=== PATIENT | male | born 1935 | race Caucasian/White ===

== ENCOUNTER 2018-09-26 16:52 | Emergency (ER) | payer OTHER ==
[~2018-09-26] VITALS: Ht 157.5 cm; Wt 95.3 kg
--- NOTE | 2018-09-26 16:57 | NUR ---
PT BIBRA FROM HALFWAY TO ER BED 07. PER REPORT "SYNCOPAL EPISODE." PT IS AWAKE, FARSI SPEAKING BUT ABLE TO ANSWER BASIC QUESTION. PT APPEARS CONFUSED. INCONTINENT TO URINE DIRECTOR OF LAND ACQUISITION. GOWNED AND PLACED ON MONITOR. STABLE AWAITING MD CRAIG.
[2018-09-26] MEDS ORDERED: IV NS 0.9% 500 ML BAG IV ONE (17:00)
--- NOTE | 2018-09-26 17:04 | NUR ---
DR TALLEY AT BEDSIDE FOR EVAL.
[2018-09-26 17:25] LABS: BASOPHILS # (AUTO) 0.1 /CMM (0.0-0.2); BASOPHILS % (AUTO) 0.6 % (0.0-2.0); HEMATOCRIT 36 % (39-51); HEMOGLOBIN 11.8 g/dL (13.5-17.5); LYMPHOCYTES # (AUTO) 1.4 /CMM (0.8-4.8); LYMPHOCYTES % (AUTO) 18.3 % (20.0-44.0); MEAN CORPUSCULAR HGB CONC 33 g/dl (31.0-36.0); MEAN CORPUSCULAR VOLUME 83 fL (80-96); MONOCYTES # (AUTO) 0.4 /CMM (0.1-1.30); MONOCYTES % (AUTO) 4.7 % (2.0-12.0); NEUTROPHILS % (AUTO) 76.4 % (43.0-81.0); PLATELET COUNT (AUTO) 192 /CMM (150-450); RED BLOOD CELL COUNT(AUTO) 4.28 MIL/uL (4.5-6.0); WHITE BLOOD COUNT (AUTO) 7.9 K/uL (4.3-11.0)
[2018-09-26 17:44] LABS: CALCIUM, SERUM 8.6 mg/dL (8.5-10.1); CARBON DIOXIDE 25 mmol/L (21-32); CHLORIDE 104 mmol/L (98-107); CREATININE 1.4 mg/dL (0.6-1.3); GLUCOSE 197 mg/dL (74-106); SODIUM SERUM 141 mmol/L (136-145); UREA NITROGEN, BLOOD 25 mg/dL (7-18)
[2018-09-26] MEDS ORDERED: LEVETIRACETAM (500MG) 500 MG in IV NS 0.9% 100 ML IV ONE (18:00)
[2018-09-26 19:06] LABS: VALPROIC ACID 1 ug/mL (50-100)
--- NOTE | 2018-09-26 19:06 | NUR ---
PT AMBULATORY W/ STEADY GAIT. Patient discharged to home in stable condition. Written and verbal after care instructions given. Patient verbalizes understanding of instruction.IV removed. Catheter intact and site benign. Pressure and 4x4 applied to site. No bleeding noted.
[2018-09-26 19:09] VITALS: BP 121/66
[2018-09-26 19:36] LABS: PHENOBARBITAL 0 ug/ml (15-39); PHENYTOIN (DILANTIN) < 0.5 ug/ml (10.0-20.0)
== END 2018-09-26 19:10 | disposition home or self-care (01) ==
LOC: ER 17:00
DX: G40.909 Epilepsy, unspecified, not intractable, without status epilepticus (principal); R40.4 Transient alteration of awareness; D64.9 Anemia, unspecified; I10 Essential (primary) hypertension; E78.5 Hyperlipidemia, unspecified; R79.89 Other specified abnormal findings of blood chemistry; Z85.46 Personal history of malignant neoplasm of prostate
CPT/HCPCS: 36415; 71045; 80048; 80164; 80184; 80185; 84484; 85025; 85730; 93005; 96365; 99284; J1953; J7030; J7040

== ENCOUNTER 2022-08-07 14:04 | Emergency (ER) | payer MEDICARE, OTHER ==
[~2022-08-07] VITALS: Ht 160 cm; Wt 74.8 kg
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
--- NOTE | 2022-08-07 14:32 | NUR ---
[place] [id number] [phone] " FRIEND "
--- NOTE | 2022-08-07 14:36 | NUR ---
Vanesa motley in [facility] - 08/07/22 at 1437 by GLEN david brought to xr via [facility]omo
--- NOTE | 2022-08-07 14:36 | NUR ---
PATIENT BROUGHT TO CT VIA [facility]
[2022-08-07 15:07] VITALS: BP 148/81
--- NOTE | 2022-08-07 15:41 | NUR ---
RADIOLOGY CALLED FOR CT READING,SPOKE WITH BJ
--- NOTE | 2022-08-07 16:06 | NUR ---
CALLED HIS [facility] EDUCATION COORDINATOR TO IT TECHNICIAN PATIENT. MESSAGE RELAYED TO Artemio [phone]
--- NOTE | 2022-08-07 16:20 | NUR ---
PATIENT AOX3 [id number] AMBULATORY STEADY GAIT. DISCHARGE TO WAITING ROOM TO WAIT FOR HIS RIDE
== END 2022-08-07 16:23 | disposition home or self-care (01) ==
LOC: ER 14:06
DX: F03.90 Unspecified dementia, unspecified severity, without behavioral disturbance, psychotic disturbance, mood disturbance, and anxiety (principal); R41.0 Disorientation, unspecified; V49.3XXA Car occupant (driver) (passenger) injured in unspecified nontraffic accident, initial encounter; Y93.89 Activity, other specified; Y92.481 Parking lot as the place of occurrence of the external cause; Y99.8 Other external cause status
CPT/HCPCS: 70450-TC; 72125-TC